=== PATIENT | female | born 1990 | race American Indian/Alaskan Native ===

== ENCOUNTER 2017-05-16 14:59 | Emergency (ER) | payer SELFPAY ==
[2017-05-16 16:27] VITALS: BP 137/99
[2017-05-16 17:12] LABS: Bacteria,Urine 1+ /HPF (Negative); Bilirubin,Urine NEG (Negative); Blood,Urine NEG (Negative); Color,Urine Straw (Yellow); HCG Qualitative,Urine Negative (Negative); Mucus,Urine FEW /HPF; Protein,Urine <15 mg/dL mg/dL (Negative); Urobilinogen,Urine < 2.0 mg/dL (<2.0)
[2017-05-16] MEDS ORDERED: ZITHROMAX PO ONE (19:24)
[2017-05-16] MEDS ORDERED: XYLOCAINE 1% MPF 5 mL INFILTRATI ONE (19:25)
[2017-05-16] MEDS ORDERED: FLAGYL PO ONE (19:25)
[2017-05-16] MEDS ORDERED: ROCEPHIN IM ONE (19:25)
[2017-05-16] MEDS ORDERED: MOTRIN PO ONE ×2 (19:26→19:32)
--- NOTE | 2017-05-16 19:32 | Emergency Department Report ---
HPI - General Chief Complaint: Urogenital-Female Time Seen by Provider: 05/16/17 18:54 - HPI HPI: The patient is a 26-year-old female presents for evaluation of genitourinary symptoms abdominal pain. The patient reports cramping lower abdominal pain for the past one to 2 days, mild in severity, exacerbated with movement, and associated with dysuria and vaginal discharge. She shares a significant other informed her of potential STD. The patient denies fever, chills, night sweats, diarrhea, blood in the stool, dark tarry stool, hematuria, flank pain, inability to pass flatus. ED Past Medical Hx - Past Medical History Previous Medical History?: Yes Additional medical history: Chlamydia - Surgical History Past Surgical History?: No - Social History Smoking Status: Current Every Day Smoker Substance Use Type: Alcohol, Marijuana - Medications Home Medications: Home Medications Medication Instructions Recorded Confirmed Last Taken Type Ibuprofen [Motrin] 800 mg PO Q8H PRN #21 tablet 07/15/14 Unknown Rx Ibuprofen [Motrin] 600 mg PO Q8H PRN #30 tablet 05/16/17 Unknown Rx Miconazole 2% [Monistat 7 Vag 1 applicator VG QHS #1 tube 05/16/17 Unknown Rx Cream] diphenhydrAMINE [Benadryl CAP] 50 mg PO Q8HR PRN #20 capsule 05/16/17 Unknown Rx metroNIDAZOLE [Flagyl] 500 mg PO Q12HR #14 tab 05/16/17 Unknown Rx ED Review of Systems ROS: Stated complaint: UTI Other details as noted in HPI Constitutional: denies: fever ENT: denies: throat or neck pain Respiratory: denies: cough, shortness of breath Cardiovascular: denies: chest pain Endocrine: denies unexplained weight loss or gain Gastrointestinal: reports abdominal pain, nausea Genitourinary: reports vaginal discharge denies: dysuria Musculoskeletal: denies: leg swelling Skin: denies: rash Neurological: denies: headache Hematological/Lymphatic: denies: easy bleeding or easy bruising Psych: denies sadness or hopelessness Physical Exam - Physical Exam Vital Signs: Vital Signs 05/16/17 16:24 Temperature 99.2 F Pulse Rate 101 H Respiratory 20 Rate Blood Pressure 137/99 O2 Sat by Pulse 100 Oximetry Physical Exam: General: well-nourished, well-developed, no acute distress Head: Normocephalic, atraumatic Eyes: normal sclera ENT: Mucous membranes are pale and dry Neck: trachea midline, neck supple, No neck stiffness, no cervical adenopathy Respiratory: Breath sounds equal bilaterally, no wheezing, rales, or rhonchi Cardio: S1 and S2 present, no murmurs, rubs, gallops, capillary refill is delayed Abdomen: Normoactive bowel sounds, soft abdomen, suprapubic tenderness to palpation present, no rigidity, no guarding or rebound tenderness Musc: No pitting edema Skin: No rash Neuro: no facial drooping, normal speech Psych: Normal affect ED Course Vital Signs 05/16/17 16:24 Temperature 99.2 F Pulse Rate 101 H Respiratory 20 Rate Blood Pressure 137/99 O2 Sat by Pulse 100 Oximetry ED Medical Decision Making - Medical Decision Making The patient was seen and examined by myself. The patient is placed on a director cardiac and continuous pulse ox. On initial evaluation, the patient was found to be in no distress. Evaluation orders were placed. The patient declined pelvic exam. The patient is given IM Rocephin, by mouth azithromycin, and by mouth Flagyl for treatment of vaginitis. The patient given Motrin for pain. The patient was reevaluated and reported that their symptoms were markedly improved. The patient is stable for discharge with outpatient follow-up. The patient is given follow-up and return instructions. The patient expressed understanding and agreed with the plan. The patient is discharged in stable condition. Critical care attestation.: If time is entered above; I have spent that time in minutes in the direct care of this critically ill patient, excluding procedure time. ED Disposition Clinical Impression: Acute suprapubic pain, Dehydration Vaginitis Qualifiers: Chronicity: acute Qualified Code(s): N76.0 - Acute vaginitis Disposition: -01 TO HOME OR SELFCARE Is pt being admited?: No Does the pt Need Aspirin: No Condition: Stable Instructions: Bacterial Vaginosis (ED), Sexually Transmitted Diseases (ED), Safe Sex (ED), Vulvovaginal Candidiasis (ED), Vaginitis (ED) Prescriptions: Miconazole 2% [Monistat 7 Vag Cream] 1 applicator VG QHS #1 tube diphenhydrAMINE [Benadryl CAP] 50 mg PO Q8HR PRN #20 capsule PRN Reason: Itching Ibuprofen [Motrin] 600 mg PO Q8H PRN #30 tablet PRN Reason: Pain metroNIDAZOLE [Flagyl] 500 mg PO Q12HR #14 tab Referrals: [facility] [Provider Group] - 3-5 Days Time of Disposition: 19:17
== END 2017-05-16 19:38 | disposition home or self-care (01) ==
LOC: ED 14:59
DX: E86.0 Dehydration (principal); N76.0 Acute vaginitis; R10.30 Lower abdominal pain, unspecified; F17.200 Nicotine dependence, unspecified, uncomplicated
CPT/HCPCS: 81001; 81025; 96372; 99283; J0696

== ENCOUNTER 2018-11-11 16:02 | Emergency (ER) | payer SELFPAY ==
[2018-11-11 16:35] VITALS: BP 128/85
--- NOTE | 2018-11-11 16:40 | Emergency Department Report ---
Chief Complaint: Nausea/Vomiting/Diarrhea Stated Complaint: TEST/NAUSEA/CRAMPING Time Seen by Provider: 11/11/18 16:32 - HPI History of Present Illness: This is a 27-year-old female nontoxic, well in appearance with no signs of distress presents for test. Patient stated she is asymptotic. Denies any penile discharge, testicular pain, or swelling. Patient denies any urinary symptoms. Patient denies any fever, chills, headache, nausea, vomiting, chest pain or shortness of breathe. denies any other symptoms or complaints. Denies any allergies or PMH. - Exam Vital Signs: Vital Signs 11/11/18 16:33 Temperature 98.7 F Pulse Rate 94 H Respiratory 18 Rate Blood Pressure 128/85 O2 Sat by Pulse 100 Oximetry Physical Exam: no abdominal pain. no pelvic pain. no back pain. no vaginal bleeding. no urinary symptoms. MSE screening note: Focused history and physical exam performed. Due to findings the following was ordered: ED Medical Decision Making - Medical Decision Making This is a 27-year-old female that presents for test. Patient denies any symptoms. I gave patient many different referrals to follow-up with STD concerns. Patient was instructed to Follow-up with a primary care doctor in 3-5 days or if symptoms worsen and continue return to emergency room as soon as possible. At time of discharge, the patient does not seem toxic or ill in appearance. No acute signs of distress noted. Patient agrees to discharge treatment plan of care. No further questions noted by the patient. ED Disposition for MSE Clinical Impression: Possible , not confirmed Disposition: Z-07 MED SCREENING EXAM-LEFT Is pt being admited?: No Does the pt Need Aspirin: No Condition: Stable Additional Instructions: Follow-up with a OBGYN doctor in 3-5 days or if symptoms worsen and continue return to emergency room as soon as possible. Referrals: PRIMARY CARE [Referring] - 3-5 Days [facility] [Provider Group] - 3-5 Days [facility] [Outside] - 3-5 Days
== END 2018-11-11 17:30 | disposition left against medical advice (07) ==
LOC: ED 16:02
DX: Z32.00 Encounter for pregnancy test, result unknown (principal)

== ENCOUNTER 2019-04-18 08:38 | Emergency (ER) | payer OTHER ==
[2019-04-18 09:00] VITALS: BP 114/70
--- NOTE | 2019-04-18 09:46 | Emergency Department Report ---
ED N/V/D HPI - General Chief complaint: Nausea/Vomiting/Diarrhea Stated complaint: N/V/6 WKS Time Seen by Provider: 04/18/19 09:39 Source: patient Mode of arrival: Ambulatory Limitations: No Limitations - History of Present Illness Initial comments: Ms. Patterson is a 28-year-old female who presents with nausea vomiting. She has had morning sickness for the past week. Unable to work for the past week. She is currently 6 weeks . This is her first . She has follow-up by [facility]. Estimated due date 12/10/2019. No current abdominal pain. No current vaginal bleeding. She desires prescription for nausea medicine. MD complaint: nausea, vomiting -: Gradual, week(s) (1) Description of Vomiting: food contents Associated Abdominal Pain: No Severity: mild, moderate Consistency: intermittent Improves with: none Worsens with: none Context: other (New ) Associated Symptoms: denies other symptoms - Related Data Previous Rx's Medication Instructions Recorded Last Taken Type Ibuprofen [Motrin] 800 mg PO Q8H PRN #21 tablet 07/15/14 Unknown Rx Ibuprofen [Motrin] 600 mg PO Q8H PRN #30 tablet 05/16/17 Unknown Rx Miconazole 2% [Monistat 7 Vag 1 applicator VG QHS #1 tube 05/16/17 Unknown Rx Cream] diphenhydrAMINE [Benadryl CAP] 50 mg PO Q8HR PRN #20 capsule 05/16/17 Unknown Rx metroNIDAZOLE [Flagyl TAB] 500 mg PO Q12HR #14 tab 02/01/18 Unknown Rx Ondansetron [Zofran Odt] 4 mg PO Q8HR PRN #20 tab.rapdis 04/18/19 Unknown Rx Allergies Allergy/AdvReac Type Severity Reaction Status Date / Time No Known Allergies Allergy Verified 04/18/19 08:44 ED Review of Systems ROS: Stated complaint: N/V/6 WKS Other details as noted in HPI Comment: All other systems reviewed and negative Constitutional: denies: fever, malaise Respiratory: denies: shortness of breath Cardiovascular: denies: chest pain Gastrointestinal: abdominal pain. denies: nausea, vomiting, diarrhea ED Past Medical Hx - Past Medical History Previous Medical History?: No Additional medical history: Chlamydia - Surgical History Past Surgical History?: No - Social History Smoking Status: Never Smoker Substance Use Type: None - Medications Home Medications: Home Medications Medication Instructions Recorded Confirmed Last Taken Type Ibuprofen [Motrin] 800 mg PO Q8H PRN #21 tablet 07/15/14 Unknown Rx Ibuprofen [Motrin] 600 mg PO Q8H PRN #30 tablet 05/16/17 Unknown Rx Miconazole 2% [Monistat 7 Vag 1 applicator VG QHS #1 tube 05/16/17 Unknown Rx Cream] diphenhydrAMINE [Benadryl CAP] 50 mg PO Q8HR PRN #20 capsule 05/16/17 Unknown Rx metroNIDAZOLE [Flagyl TAB] 500 mg PO Q12HR #14 tab 02/01/18 Unknown Rx Ondansetron [Zofran Odt] 4 mg PO Q8HR PRN #20 tab.rapdis 04/18/19 Unknown Rx ED Physical Exam - General Limitations: No Limitations General appearance: alert, in no apparent distress - Head Head exam: Present: atraumatic, normocephalic - Eye Eye exam: Present: normal appearance - ENT ENT exam: Present: mucous membranes moist - Neck Neck exam: Present: normal inspection, full ROM - Respiratory Respiratory exam: Present: normal lung sounds bilaterally. Absent: respiratory distress - Cardiovascular Cardiovascular Exam: Present: regular rate, normal rhythm, normal heart sounds. Absent: systolic murmur, diastolic murmur, rubs, gallop - GI/Abdominal GI/Abdominal exam: Present: soft, normal bowel sounds. Absent: distended, tenderness, guarding, rebound - Extremities Exam Extremities exam: Present: normal inspection - Neurological Exam Neurological exam: Present: alert, oriented X3 - Psychiatric Psychiatric exam: Present: normal affect, normal mood - Skin Skin exam: Present: warm, dry, intact, normal color. Absent: rash ED Course Vital Signs 04/18/19 08:59 Temperature 98.3 F Pulse Rate 104 H Respiratory 18 Rate Blood Pressure 114/70 O2 Sat by Pulse 100 Oximetry ED Medical Decision Making - Medical Decision Making Nausea vomiting due to . No associated abdominal pain or vaginal bleeding. Prescribe Zofran. She has follow-up visit in 2 weeks. Critical care attestation.: If time is entered above; I have spent that time in minutes in the direct care of this critically ill patient, excluding procedure time. ED Disposition Clinical Impression: Morning sickness, First trimester Disposition: DC-01 TO HOME OR SELFCARE Is pt being admited?: No Does the pt Need Aspirin: No Condition: Stable Instructions: Morning Sickness (ED) Prescriptions: Ondansetron [Zofran Odt] 4 mg PO Q8HR PRN #20 tab.rapdis PRN Reason: Nausea Forms: Work/School Release Form(ED)
[2019-04-18] MEDS: ONDANSETRON 4 MG ODT TAB PO ONE (09:52)
== END 2019-04-18 09:46 | disposition home or self-care (01) ==
LOC: ED 08:38
DX: O21.8 Other vomiting complicating pregnancy (principal); Z3A.01 Less than 8 weeks gestation of pregnancy; Z79.1 Long term (current) use of non-steroidal anti-inflammatories (NSAID); Z79.899 Other long term (current) drug therapy
CPT/HCPCS: 99282; Q0162